=== PATIENT | male | born 1990 | race African-American/Black ===

== ENCOUNTER 2019-07-17 20:03 | Inpatient (IN) | payer OTHER ==
[~2019-07-17] VITALS: Ht 185.4 cm; Wt 84.4 kg
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
[2019-07-17] MEDS ORDERED: OLANZAPINE 10 MG VIAL IM ONE ×2 (20:21→20:30)
[2019-07-17] MEDS ORDERED: LORAZEPAM INJ 2 MG/ML VIAL ONE ×2 (20:21→22:13)
[2019-07-17] MEDS ORDERED: diphenhydrAMINE HCL 50 MG/ML VIAL ONE (20:21)
[2019-07-17] MEDS ORDERED: LORAZEPAM INJ 2 MG/ML VIAL IM ONE (20:30)
[2019-07-17] MEDS ORDERED: diphenhydrAMINE HCL 50 MG/ML VIAL IM ONE (20:30)
[2019-07-17 20:35] LABS: BASOPHILS # (AUTO) 0.1 /CMM (0.0-0.2); BASOPHILS % (AUTO) 0.3 % (0.0-2.0); HEMATOCRIT 47 % (39-51); HEMOGLOBIN 15.6 g/dL (13.5-17.5); LYMPHOCYTES # (AUTO) 0.5 /CMM (0.8-4.8); LYMPHOCYTES % (AUTO) 3.3 % (20.0-44.0); MEAN CORPUSCULAR HGB CONC 33 g/dl (31.0-36.0); MEAN CORPUSCULAR VOLUME 84 fL (80-96); MONOCYTES # (AUTO) 1.2 /CMM (0.1-1.30); MONOCYTES % (AUTO) 7.5 % (2.0-12.0); NEUTROPHILS # (AUTO) 14.6 /CMM (1.8-8.9); NEUTROPHILS % (AUTO) 88.9 % (43.0-81.0); PLATELET COUNT (AUTO) 132 /CMM (150-450); RED BLOOD CELL COUNT(AUTO) 5.63 MIL/uL (4.5-6.0); WHITE BLOOD COUNT (AUTO) 16.5 K/uL (4.3-11.0)
--- NOTE | 2019-07-17 20:35 | NUR ---
PT MEDICATED ORDERED.
[2019-07-17 20:49] LABS: ALBUMIN 4.5 g/dL (3.4-5.0); BILIRUBIN,DIRECT 0.2 mg/dL (0.0-0.2); BILIRUBIN,TOTAL 0.8 mg/dL (0.2-1.0); CALCIUM, SERUM 9.9 mg/dL (8.5-10.1); CREATININE 1.9 mg/dL (0.6-1.3); POTASSIUM 4.4 mmol/L (3.5-5.1); TOTAL PROTEIN, SERUM 7.7 g/dL (6.4-8.2)
[2019-07-17 20:56] LABS: SALICYLATE 1.8 mg/dL (2.8-20.0)
[2019-07-17] MEDS ORDERED: IV NS 0.9% 1,000 ML BAG IV ONE ×2 (21:00→22:30)
[2019-07-17] MEDS ORDERED: LIDOCAINE 2% JEL UROJET 10 ML MM ONE ×2 (22:07→22:30)
[2019-07-17] MEDS ORDERED: LORAZEPAM INJ 2 MG/ML VIAL IV ONE (22:30)
--- NOTE | 2019-07-17 23:00 | NUR ---
URINE COLLECTED AND SENT TO LAB
[2019-07-17 23:05] LABS: APPEARANCE,URINE Clear (CLEAR); BILIRUBIN,URINE Negative (NEGATIVE); BLOOD, URINE Moderate Ery/uL (NEGATIVE); COLOR,URINE Yellow (YELLOW); KETONES,URINE 15 (NEGATIVE); LEUKOCYTE ESTERASE ,URINE Negative (NEGATIVE); NITRITE, URINE Negative (NEGATIVE); PH,URINE 5.5 (5.0-8.0); PROTEIN,URINE Negative (NEGATIVE); UGLUCOSE Negative (NEGATIVE); UROBILINOGEN,URINE 0.2 EU/dL (0.2)
--- NOTE | 2019-07-17 23:40 | NUR ---
JAME NICOLE MGR VERBAL AUTH FOR ADMISSION GIVEN
[2019-07-18 00:03] LABS: BACTERIA,URINE Few /HPF (None Seen); SQUAMOUS EPITHELIAL CELL,UR Few /HPF (None Seen); WBC,URINE 0-2 /HPF (0-3)
[2019-07-18] MEDS ORDERED: IV NS 0.9% 1,000 ML IV PRN (00:10)
[2019-07-18] MEDS ORDERED: MAG HYDROX/AL HYDROX/SIMETH 30 ML UDC PO PRN (00:30)
[2019-07-18] MEDS ORDERED: ONDANSETRON HCL/PF 4 MG/2 ML VIAL IVP PRN (00:30)
[2019-07-18] MEDS ORDERED: ACETAMINOPHEN 325 MG TABLET PO PRN (00:30)
[2019-07-18] MEDS ORDERED: Z GUARD REMEDY 2 OZ OINT TP PRN (00:30)
[2019-07-18] MEDS ORDERED: MAGNESIUM HYDROXIDE 30 ML UDC PO PRN (00:30)
[2019-07-18] MEDS ORDERED: LORAZEPAM INJ 2 MG/ML VIAL IV PRN (00:30)
[2019-07-18] MEDS ORDERED: HYDROCODONE/APAP 5/325MG 1 EACH TABLET PO PRN (00:30)
--- NOTE | 2019-07-18 00:49 | NUR ---
REPORT GIVEN TO VANITA SWIFT FOR ABIGAIL PT WILL BE TRANSPORTED TO 1ST FLOOR WHEN ROOM IS READY.
[2019-07-18 02:10] VITALS: BP 103/63
--- NOTE | 2019-07-18 02:14 | NUR ---
Report given to Quentin SWIFT for continuation of care.
--- NOTE | 2019-07-18 02:23 | NUR ---
Pt transported to via [facility].
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
[2019-07-18 08:00] VITALS: BP 155/88
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
[2019-07-18 11:32] LABS: BASOPHILS # (AUTO) 0.1 /CMM (0.0-0.2); BASOPHILS % (AUTO) 0.6 % (0.0-2.0); EOSINOPHILS % (AUTO) 0.8 % (0.0-6.0); HEMATOCRIT 44 % (39-51); HEMOGLOBIN 14.4 g/dL (13.5-17.5); LYMPHOCYTES # (AUTO) 1.5 /CMM (0.8-4.8); LYMPHOCYTES % (AUTO) 16.3 % (20.0-44.0); MEAN CORPUSCULAR HGB CONC 33 g/dl (31.0-36.0); MEAN CORPUSCULAR VOLUME 86 fL (80-96); MONOCYTES # (AUTO) 1.2 /CMM (0.1-1.30); MONOCYTES % (AUTO) 13.7 % (2.0-12.0); NEUTROPHILS # (AUTO) 6.2 /CMM (1.8-8.9); NEUTROPHILS % (AUTO) 68.6 % (43.0-81.0); PLATELET COUNT (AUTO) 101 /CMM (150-450); RED BLOOD CELL COUNT(AUTO) 5.11 MIL/uL (4.5-6.0); WHITE BLOOD COUNT (AUTO) 9.1 K/uL (4.3-11.0)
[2019-07-18 11:49] LABS: CALCIUM, SERUM 8.6 mg/dL (8.5-10.1); CREATININE 1.1 mg/dL (0.6-1.3); PHOSPHORUS 3.3 mg/dL (2.5-4.9); POTASSIUM 4.3 mmol/L (3.5-5.1)
--- NOTE | 2019-07-18 12:24 | NUR ---
lab ordered by dr Kasey stubbs, patient agitated, ATIVAN one mg ivp given, and lab drawn after 15mintues. Results ready for review. Continues ivf NS at 150cc per hour, did not eat lunch.
--- NOTE | 2019-07-18 13:30 | NUR ---
m/s blanket weaver: notes received pt from masha (rn) for continuity of care. pt asleep at this time with sitter at bedside. appears sedated. resp. even and unlabored. will continue to monitor.
--- NOTE | 2019-07-18 13:50 | NUR ---
m/s fibreglass gun hand: notes noted glucose random 61 from this morning lab. pt appears sedated, pt had ativan earlier per am nurse. per sitter pt did not eat anything today. dr. morales notified and made aware with order to change his iv fluid to d5ns at 125ml/hr and no more ativan. orders read back and carried out. will continue to monitor.
[2019-07-18] MEDS: IV D5/ 0.9% NACL 1,000 ML IV SCH ×2 (13:54→22:00)
--- NOTE | 2019-07-18 13:54 | NUR ---
m/s ship's carpenter: notes iv fluids change to d5ns iv at 125ml/hr. sitter at bedside. will continue to monitor.
--- NOTE | 2019-07-18 15:00 | NUR ---
m/s concrete pump operator helper: notes pt remains in bed with eyes close, no distress noted. sitter at bedside. will continue to monitor.
--- NOTE | 2019-07-18 17:00 | NUR ---
m/s clinical dietitian: notes remains asleep. sitter remains at bedside. no apparent distress noted. will continue to monitor.
--- NOTE | 2019-07-18 18:22 | NUR ---
m/s vp strategic planning: notes pt remains asleep. no distress noted. iv fluids infusing well. sitter at bedside. needs attended. call light within reach. will continue to monitor.
--- NOTE | 2019-07-18 19:00 | NUR ---
m/s peanut picker: notes report given to amando (david) for continuity of care.
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
--- NOTE | 2019-07-18 20:00 | NUR ---
RECIEVED ASLEEP. AROUSES WHEN NAME CALLED AND SHOULDER TOUCHED. STATES HE IS HUNGARY SPEECH CLEAR. ALERT AND ORIENTATED X3 SITTER AT THE BEDSIDE
[2019-07-18 20:15] VITALS: BP 120/70
[2019-07-19] MEDS: IV D5/ 0.9% NACL 1,000 ML IV SCH (05:52)
--- NOTE | 2019-07-19 06:06 | NUR ---
ENDING NOTES:AT THE BEGINNIG OF THE SHIFT HE WAS NOT COOPERATIVE, SPOKE WITH HIM ABOUT BEING IN A HOSPITAL AND BEING NICE. THE NIGHT WENT ON HE WAS NICE AND WAS COOPERATIVE. HE ATE A SANDWITCH JUICES FOR A MIDNIGHT SNACK. SITTER AT THE BEDSIDE. HIS IV WAS ACCIDENTLY PULLED OUT RESTARTED LEFT L/A
[2019-07-19 06:54] LABS: BASOPHILS % (AUTO) 0.5 % (0.0-2.0); EOSINOPHILS % (AUTO) 1.4 % (0.0-6.0); HEMATOCRIT 44 % (39-51); HEMOGLOBIN 14.3 g/dL (13.5-17.5); LYMPHOCYTES # (AUTO) 1.4 /CMM (0.8-4.8); LYMPHOCYTES % (AUTO) 20.1 % (20.0-44.0); MEAN CORPUSCULAR HGB CONC 33 g/dl (31.0-36.0); MEAN CORPUSCULAR VOLUME 85 fL (80-96); MONOCYTES # (AUTO) 0.8 /CMM (0.1-1.30); MONOCYTES % (AUTO) 10.8 % (2.0-12.0); NEUTROPHILS # (AUTO) 4.7 /CMM (1.8-8.9); NEUTROPHILS % (AUTO) 67.2 % (43.0-81.0); PLATELET COUNT (AUTO) 100 /CMM (150-450)
[2019-07-19 06:57] LABS: CALCIUM, SERUM 8.3 mg/dL (8.5-10.1); PHOSPHORUS 3.5 mg/dL (2.5-4.9); POTASSIUM 4.2 mmol/L (3.5-5.1)
[2019-07-19 06:59] LABS: THYROID STIMULATING HORMONE 0.971 uIU/mL (0.358-3.74)
--- NOTE | 2019-07-19 07:15 | NUR ---
MS RN OPENING NOTE RECEIVED PATIENT IN BED SLEEPING COMFORTABLY. PATIENT IN NO ACUTE DISTRESS. NO SOB NOTED. PATIENT BREATHING IS EVEN AND UNLABORED. NO FACIAL GRIMACING NOTED. PATIENT ON A 1:1 SITTER. PATIENT BED IS LOCKED AND IN LOWEST POSITION. CALL LIGHT WITHIN REACH. WILL CONTINUE TO MONITOR.
[2019-07-19 08:00] VITALS: BP 137/95
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
== END 2019-07-19 14:45 | disposition home or self-care (01) | DRG 812 ==
LOC: ER 20:07 → MEDSG1 07-18 00:39 → MED 07-18 02:04
PROVIDERS: ADMIT Nurse Practitioner Acute Care; ATTEND Nurse Practitioner Acute Care
DX: T43.621A Poisoning by amphetamines, accidental (unintentional), initial encounter (principal); N17.0 Acute kidney failure with tubular necrosis; G92 Toxic encephalopathy; D69.6 Thrombocytopenia, unspecified; M62.82 Rhabdomyolysis; Z59.0 Homelessness; D72.829 Elevated white blood cell count, unspecified; R74.0 Nonspecific elevation of levels of transaminase and lactic acid dehydrogenase [LDH]; F19.90 Other psychoactive substance use, unspecified, uncomplicated; Y92.89 Other specified places as the place of occurrence of the external cause; T40.7X1A Poisoning by cannabis (derivatives), accidental (unintentional), initial encounter; F29 Unspecified psychosis not due to a substance or known physiological condition; R40.2142 Coma scale, eyes open, spontaneous, at arrival to emergency department; R40.2362 Coma scale, best motor response, obeys commands, at arrival to emergency department; R40.2242 Coma scale, best verbal response, confused conversation, at arrival to emergency department
CPT/HCPCS: 36415; 71045-TC; 80048-TC; 80061-TC; 80076-TC; 80305; 81000-TC; 82550-TC; 83735-TC; 84100-TC; 84443-TC; 85025-TC; 87081-TC; G0378; G0480; J1200; J2060; J3490; J7030; J7042